=== PATIENT | female | born 1985 | race Caucasian/White ===

== ENCOUNTER → 2017-03-27 | Outpatient (CLI) | payer BC ==
[~2017-03-27] MED LIST: ALDOMET500 MG PO; FERROUS SU325 MG/TAB PO; GLUCOPHAGE1000 MG PO; GLUCOPHAGE500 MG/TAB PO; LEXAPRO20 MG PO; LORTAB 5/500 501 TAB PO; MOTRIN 600600 MG/TAB PO; ORTHO TRI-CYCLE1 TAB PO; PERCOCET 325 MG1 TA2 PO; PHENERGAN 25 TA25 MG PO; PHENERGAN25 MG RC; PRENATAL1 TA7 PO; [UNRECOGNIZED DRUG - OTHER] PO
== END ==
LOC: COL.RAD 08:08
DX: N88.8 Other specified noninflammatory disorders of cervix uteri (principal); N92.6 Irregular menstruation, unspecified; R63.5 Abnormal weight gain; Z85.43 Personal history of malignant neoplasm of ovary

== ENCOUNTER → 2019-02-27 | Outpatient (CLI) | payer BC | LOC: COL.RAD 02-18 10:30 | DX: R10.32 Left lower quadrant pain (principal) | CPT/HCPCS: Q9967 ==

== ENCOUNTER → 2023-09-06 | Outpatient (CLI) | payer BC | LOC: MC.RAD 13:00 | DX: R92.8 Other abnormal and inconclusive findings on diagnostic imaging of breast (principal) ==

== ENCOUNTER → 2023-09-06 | Outpatient (CLI) | payer BC | LOC: COL.RAD 11:07 → MC.RAD 11:30 | DX: E28.2 Polycystic ovarian syndrome (principal); R10.2 Pelvic and perineal pain ==

== ENCOUNTER → 2024-03-02 | Outpatient (CLI) | payer BC, OTHER | LOC: MC.RAD 12:56 | DX: N64.89 Other specified disorders of breast (principal) ==